=== PATIENT | female | born 1965 | race Caucasian/White ===

== ENCOUNTER 2017-10-02 07:52 | Day surgery (SDC) | payer BC, OTHER ==
[~2017-10-02] VITALS: Ht 165.1 cm; Wt 90.7 kg
[2017-10-02] MEDS ORDERED: PROPOFOL 200MG/ 20ML VIAL (DIPRIVAN) IV ONE (08:55)
[2017-10-02] MEDS ORDERED: LR 1,000 ML IV.SOLN IV ONE (08:55)
[2017-10-02] MEDS ORDERED: ROCURONIUM BROMIDE 10 MG/ML (ZEMURON) IV ONE (08:55)
[2017-10-02] MEDS ORDERED: CEFAZOLIN 2 GM IVPB PREMIX 50 ML IV ONE (08:55)
[2017-10-02] MEDS ORDERED: LIDOCAINE/EPI 1% 1:100000 20 ML VIAL INJ ONE (08:55)
[2017-10-02] MEDS ORDERED: KETOROLAC TROMETHAMINE 30 MG VIAL IVP ONE (08:55)
[2017-10-02] MEDS ORDERED: SEVOFLURANE 15 MIN GAS INH ONE (08:55)
[2017-10-02] MEDS ORDERED: NS IRRIG SOLN 1000 ML IR ONE (08:55)
[2017-10-02] MEDS ORDERED: MIDAZOLAM HCL 5 MG/5 ML VIAL IVP ONE (08:55)
[2017-10-02] MEDS ORDERED: OXYMETAZOLINE HCL 0.05% NASAL SPRAY NS ONE (08:55)
[2017-10-02] MEDS ORDERED: fentaNYL CITRATE/PF 100 MCG/2 ML AMP IVP ONE (08:55)
[2017-10-02] MEDS ORDERED: DEXAMETHASONE SOD PHOSPHATE 4 MG/ML VIAL IVP ONE (08:55)
[2017-10-02] MEDS ORDERED: BACITRACIN ZINC 15 GM TOPICAL OINTMENT TP ONE (08:55)
[2017-10-02] MEDS ORDERED: ONDANSETRON HCL 4 MG/2 ML VIAL IVP ONE (08:55)
[2017-10-02] MEDS ORDERED: LR 1,000 ML IV SCH ×2 (09:39)
[2017-10-02] MEDS ORDERED: HYDROmorphone 1 MG INJ. 1 MG/ML AMPUL IVP PRN (09:45)
[2017-10-02] MEDS ORDERED: MORPHINE 4 MG/ML INJ. SYRINGE IVP PRN ×4 (09:45)
[2017-10-02] MEDS ORDERED: MORPHINE SULFATE 10 MG/ML VIAL IVP PRN ×2 (09:45)
[2017-10-02] MEDS ORDERED: MEPERIDINE HCL/PF 25 MG/ML DISP.SYRIN IVP PRN ×2 (09:45)
[2017-10-02] MEDS ORDERED: HYDROmorphone 2 MG/ML VIAL IVP PRN ×2 (09:45)
[2017-10-02] MEDS ORDERED: OXYCODONE/ACETAMINOPHEN 5-325 TABLET PO PRN (10:45)
[2017-10-02] MEDS ORDERED: MORPHINE 4 MG/ML INJ. SYRINGE ONE (11:14)
[2017-10-02 12:07] VITALS: BP_SYST 126
== END 2017-10-02 14:00 | disposition home or self-care (01) ==
LOC: SDS 07:52 → SMU 07:52 → SDS 14:00
PROVIDERS: ATTEND Otolaryngology Plastic Surgery within the Head & Neck
DX: J34.2 Deviated nasal septum (principal); J32.9 Chronic sinusitis, unspecified; J34.3 Hypertrophy of nasal turbinates; J34.89 Other specified disorders of nose and nasal sinuses; E66.9 Obesity, unspecified; I10 Essential (primary) hypertension; Z88.8 Allergy status to other drugs, medicaments and biological substances; K21.9 Gastro-esophageal reflux disease without esophagitis; Z79.899 Other long term (current) drug therapy; Z90.710 Acquired absence of both cervix and uterus; Z98.890 Other specified postprocedural states; E55.9 Vitamin D deficiency, unspecified; Z68.33 Body mass index [BMI] 33.0-33.9, adult
CPT/HCPCS: 30140; 30520; 31253; 31267; 31296; A4649; C1726; J0690; J1100; J1885; J2250; J2270; J2405; J2704; J3010; J7120

== ENCOUNTER 2018-01-22 08:46 | Day surgery (SDC) | payer OTHER ==
[~2018-01-22] VITALS: Ht 165.1 cm; Wt 90.7 kg
[2018-01-22] MEDS ORDERED: POLYMYXIN 500,000/BACIT.10,000 UNITS in NS IRR 1 L IR ONE (09:19)
[2018-01-22] MEDS ORDERED: LR 1,000 ML IV SCH (10:48)
[2018-01-22] MEDS ORDERED: METOCLOPRAMIDE HCL 10 MG/2 ML VIAL IVP PRN (11:00)
[2018-01-22] MEDS ORDERED: MEPERIDINE HCL/PF 50 MG/ML AMP IVP PRN ×2 (11:00)
[2018-01-22] MEDS ORDERED: MEPERIDINE HCL/PF 25 MG/ML DISP.SYRIN IVP PRN (11:00)
[2018-01-22] MEDS ORDERED: PROPOFOL 200MG/ 20ML VIAL (DIPRIVAN) IV ONE (11:10)
[2018-01-22] MEDS ORDERED: CEFAZOLIN 1 GM IVPB PREMIX 50 ML IV ONE (11:10)
[2018-01-22] MEDS ORDERED: LR 1,000 ML IV.SOLN IV ONE (11:10)
[2018-01-22] MEDS ORDERED: NS 250 ML IV.SOLN IV ONE (11:10)
[2018-01-22] MEDS ORDERED: ONDANSETRON HCL 4 MG/2 ML VIAL ONE (11:10)
[2018-01-22] MEDS ORDERED: NS IRRIG SOLN 1000 ML IR ONE (11:10)
[2018-01-22] MEDS ORDERED: OXYMETAZOLINE HCL 0.05% NASAL SPRAY NS ONE (11:10)
[2018-01-22] MEDS ORDERED: fentaNYL CITRATE 250 MCG/5 ML AMP ONE (11:10)
[2018-01-22] MEDS ORDERED: SEVOFLURANE 15 MIN GAS INH ONE (11:10)
[2018-01-22] MEDS ORDERED: DEXAMETHASONE SOD PHOSPHATE 4 MG/ML VIAL ONE (11:10)
[2018-01-22] MEDS ORDERED: SUCCINYLCHOLINE CHLORIDE 20 MG/ML(QUELICIN) ONE (11:10)
[2018-01-22] MEDS ORDERED: TRIAMCINOLONE ACETONIDE 40 MG/ML ONE (11:10)
[2018-01-22] MEDS ORDERED: LIDOCAINE/EPI 1% 1:100000 20 ML VIAL INJ ONE (11:10)
[2018-01-22] MEDS ORDERED: MEPERIDINE HCL/PF 50 MG/ML AMP ONE (11:47)
[2018-01-22] MEDS ORDERED: METOCLOPRAMIDE HCL 10 MG/2 ML VIAL ONE (11:47)
[2018-01-22 12:27] VITALS: BP_SYST 120
== END 2018-01-22 13:50 | disposition home or self-care (01) ==
LOC: SDS 08:46 → SMU 09:20 → SDS 13:50
PROVIDERS: ATTEND Otolaryngology Plastic Surgery within the Head & Neck
DX: J32.9 Chronic sinusitis, unspecified (principal); H21.5 Other and unspecified adhesions and disruptions of iris and ciliary body; J34.89 Other specified disorders of nose and nasal sinuses; K21.9 Gastro-esophageal reflux disease without esophagitis; Z90.710 Acquired absence of both cervix and uterus; I10 Essential (primary) hypertension; Z98.890 Other specified postprocedural states; Z79.899 Other long term (current) drug therapy; Z68.33 Body mass index [BMI] 33.0-33.9, adult; E66.01 Morbid (severe) obesity due to excess calories; Z88.8 Allergy status to other drugs, medicaments and biological substances
CPT/HCPCS: 30560; 31267; 87070; 87075; 87186; J0330; J0690; J1100; J2175; J2405; J2704; J2765; J3010; J3301; J7050; J7120